=== PATIENT | male | born 1985 | race African-American/Black ===

== ENCOUNTER 2016-08-29 18:06 | Emergency (ER) | payer BC ==
[~2016-08-29] VITALS: Ht 175.3 cm; Wt 72.6 kg
[2016-08-29 18:35] VITALS: BP 129/68
[2016-08-29] MEDS ORDERED: HYDROCODONE/APAP 10/325MG 1 EA TABLET PO ONE (19:00)
[2016-08-29] MEDS ORDERED: ONDANSETRON 4 MG TAB.RAPDIS SL ONE (19:00)
[2016-08-29] MEDS ORDERED: LIDOCAINE 1%-EPI 1:100,000 50 ML VIAL IJ ONE (19:00)
[2016-08-29] MEDS ORDERED: HYDROCODONE/APAP 10/325MG 1 EA TABLET ONE (19:07)
[2016-08-29] MEDS ORDERED: ONDANSETRON 4 MG TAB.RAPDIS ONE (19:08)
== END 2016-08-29 19:15 | disposition home or self-care (01) ==
LOC: ER 18:09
DX: L02.31 Cutaneous abscess of buttock (principal)
CPT/HCPCS: 10060; 99283; A4606; J3490; Q0162; Z7610